=== PATIENT | female | born 2000 | race Caucasian/White ===

== ENCOUNTER 2022-09-06 13:24 | Emergency (ER) | payer MEDICAID | END 2022-09-06 14:36 | disposition left against medical advice (07) | LOC: ER 13:25 | DX: R11.10 Vomiting, unspecified (principal); Z53.21 Procedure and treatment not carried out due to patient leaving prior to being seen by health care provider ==

== ENCOUNTER 2023-03-18 17:59 | Emergency (ER) | payer MEDICAID ==
[~2023-03-18] VITALS: Ht 154.9 cm; Wt 63.6 kg
[2023-03-18 18:00] VITALS: BP 130/85; PULSE 130; RESP 20; TEMP 99.3; O2SAT 99
[2023-03-18] MEDS ORDERED: dexamethasone sod phosphate 10mg/ml inj PO STA (18:04)
== END 2023-03-18 18:58 | disposition home or self-care (01) ==
LOC: ER 17:59
DX: J35.1 Hypertrophy of tonsils (principal)
CPT/HCPCS: 99283; J1100